=== PATIENT | male | born 1975 | race Caucasian/White ===

== ENCOUNTER 2021-08-13 06:47 | Inpatient (IN) | payer OTHER ==
[2021-08-13] MEDS ORDERED: diazePAM CARPU-JECT 10 MG/2 ML DISP.SYRIN IVPUSH ONE ×2 (07:42→09:57)
[2021-08-13] MEDS ORDERED: SODIUM CHLORIDE 0.9% 500 ML INFUS.BAG IV ONE (07:44)
[2021-08-13] MEDS ORDERED: FOLIC ACID INJECTION - 1 MG, THIAMINE HCL 100 MG, MULTIVIT INJECTION ADULT 10 ML in SOD... IVPB ONE (07:50)
[2021-08-13] MEDS ORDERED: diazePAM CARPU-JECT 10 MG/2 ML DISP.SYRIN ONE ×2 (08:51→10:02)
[2021-08-13 09:37] LABS: BASO % 0.6 % (0-2.0); EOS % 0.3 % (0-4.5); HEMOGLOBIN 15.1 GM/dL (11.7-16.9); LYMPH % 12.3 % (8-40); MCH 31.1 pg (25.7-33.7); MCHC 34.2 g/dl (32.0-35.9); MEAN PLT VOLUME 7.4 fl (7.5-11.1); MONO % 13.6 % (3.8-10.2); NEUT % 73.2 % (42.8-82.8); PLATELET COUNT 98 10^3/uL (134-434); RBC 4.84 M/mm3 (4.00-5.60); RDW 15.4 % (11.9-15.9); WHITE BLOOD COUNT 4.8 K/mm3 (4.0-10.0)
[2021-08-13 09:55] LABS: CHLORIDE 99 mmol/L (98-107); SODIUM 135 mmol/L (136-145)
[2021-08-13 09:57] LABS: CALCIUM 9.1 mg/dL (8.5-10.1)
[2021-08-13 09:58] LABS: ALBUMIN 4.5 g/dl (3.4-5.0); ANION GAP 10 MMOL/L (8-16); BLOOD UREA NITROGEN 6.9 mg/dL (7-18); CO2 26 mmol/L (21-32); GLUCOSE,RANDOM 98 mg/dL (74-106); MAGNESIUM 2.3 mg/dL (1.8-2.4)
[2021-08-13 10:01] LABS: CREATININE 0.5 mg/dL (0.55-1.3); PHOSPHOROUS 3.3 mg/dL (2.5-4.9); SGOT/AST 116 U/L (15-37); SGPT/ALT 120 U/L (13-61)
[2021-08-13 10:03] LABS: BILIRUBIN,TOTAL 1.2 mg/dL (0.2-1); TOT PROT 7.6 g/dl (6.4-8.2)
[2021-08-13 10:04] LABS: ALK PHOS 91 U/L (45-117)
[2021-08-13] MEDS ORDERED: LORazepam 2 MG TABLET PO SCH (11:00)
[2021-08-13] MEDS ORDERED: LORazepam 1 MG TABLET PO PRN (11:14)
[2021-08-13] MEDS ORDERED: LORazepam 1 MG TABLET PO SCH (11:27)
[2021-08-13] MEDS: LORazepam 1 MG TABLET PO SCH ×3 (11:35→22:14)
[2021-08-13] MEDS ORDERED: LORazepam 1 MG TABLET ONE (11:35)
[2021-08-13 12:00] LABS: COCAINE, UR NEGATIVE (NEGATIVE); METHADONE, UR NEGATIVE (NEGATIVE); URINE AMPHETAMINES NEGATIVE (NEGATIVE); URINE BARBITURATES NEGATIVE (NEGATIVE)
[2021-08-13 12:01] LABS: OPIATES, URI NEGATIVE (NEGATIVE); PHENCYCLIDINE,URINE NEGATIVE (NEGATIVE)
[2021-08-13 12:03] LABS: URINE BENZODIAZEPINES NEGATIVE (NEGATIVE)
[2021-08-13 12:13] LABS: EPI CELLS 1 /uL (0-25.1); HYALINE CASTS 1 /uL (0-3.1); PH,URINE 6.5 (5.0-8.0); URINE APPEARANCE CLEAR; URINE BACTERIA 17 /uL (0-1359); URINE BILIRUBIN NEGATIVE (NEGATIVE); URINE COLOR DK YELLOW; URINE GLUCOSE (UA) NEGATIVE (NEGATIVE); URINE KETONE 3+ (NEGATIVE); URINE LEUK ESTERASE NEGATIVE (NEGATIVE); URINE NITRITE NEGATIVE (NEGATIVE); URINE PROTEIN 1+ (NEGATIVE); URINE RBC 4 /uL (0-23.9); URINE WBC 1 /uL (0-25.8)
[2021-08-13 16:04] VITALS: BMI 21.7
[2021-08-13 23:35] VITALS: BP 120/71; PULSE 87; TEMP 98.3
[2021-08-14] MEDS ORDERED: MELATONIN 5 MG TABLETS PO ONE (01:12)
[2021-08-14] MEDS ORDERED: LORazepam 0.5 MG TABLET PO ONE (01:24)
[2021-08-14] MEDS: LORazepam 1 MG TABLET PO SCH (04:02)
[2021-08-14] MEDS ORDERED: THIAMINE HCL 100 MG TABLET (FP) PO SCH (10:00)
[2021-08-14] MEDS ORDERED: FOLIC ACID 1 MG TABLET (FP) PO SCH (10:00)
[2021-08-15] MEDS ORDERED: LORazepam 1 MG TABLET PO SCH (05:00)
[2021-08-16] MEDS ORDERED: LORazepam 0.5 MG TABLET PO PRN
[2021-08-16] MEDS ORDERED: LORazepam 0.5 MG TABLET PO SCH (05:00)
[2021-08-17] MEDS ORDERED: LORazepam 0.5 MG TABLET PO ONE (05:00)
== END 2021-08-14 10:33 | disposition left against medical advice (07) | DRG 770 ==
LOC: JER 06:47 → JERBED 10:46 → J5S 14:17
PROVIDERS: ADMIT Internal Medicine
DX: F10.231 Alcohol dependence with withdrawal delirium (principal); D69.6 Thrombocytopenia, unspecified; F10.232 Alcohol dependence with withdrawal with perceptual disturbance; R74.01 Elevation of levels of liver transaminase levels
CPT/HCPCS: 36415; 70450-TC; 76705-TC; 80053; 80307; 81003; 82140; 82746; 83735; 84100; 84443; 85025; 86704; 86705; 86803; 87340; 87517; 93005; 93010; 99291; C9803-CS; U0003; U0005

== ENCOUNTER 2021-10-12 09:15 | Emergency (ER) | payer OTHER ==
[2021-10-12 09:27] VITALS: BP 124/78; PULSE 74; RESP 18; TEMP 98.2; BMI 22.4
[2021-10-12] MEDS ORDERED: LACTULOSE 20 GM/30 ML UDC (FOR ORAL USE ONLY) PO ONE (10:35)
[2021-10-12] MEDS ORDERED: POLYETHYLENE GLYCOL 3350 119 GM BTL PO ONE (10:35)
[2021-10-12] MEDS ORDERED: LACTULOSE 20 GM/30 ML UDC (FOR ORAL USE ONLY) ONE (10:40)
[2021-10-12] MEDS ORDERED: POLYETHYLENE GLYCOL (HEALTHYLAX) 3350 17 GM PACKET ONE (10:40)
== END 2021-10-12 10:45 | disposition home or self-care (01) ==
LOC: JERFT 09:15
DX: K59.00 Constipation, unspecified (principal); R10.825 Periumbilic rebound abdominal tenderness
CPT/HCPCS: 74019-TC-FY; 99284-25

== ENCOUNTER 2022-01-04 22:31 | Emergency (ER) | payer OTHER ==
[2022-01-04 23:00] VITALS: TEMP 98.4; BMI 23.3
[2022-01-04] MEDS ORDERED: chlordiazePOXIDE HCL 25 MG CAPSULE PO ONE (23:45)
[2022-01-05] MEDS ORDERED: chlordiazePOXIDE HCL 25 MG CAPSULE ONE (00:11)
[2022-01-05 00:23] LABS: BASO % 0.8 % (0-2.0); HEMATOCRIT 42.2 % (35.4-49); HEMOGLOBIN 14.3 GM/dL (11.7-16.9); LYMPH % 19.4 % (8-40); MCH 30.4 pg (25.7-33.7); MEAN CELL VOLUME 89.6 fl (80-96); MEAN PLT VOLUME 6.8 fl (7.5-11.1); MONO % 12.7 % (3.8-10.2); NEUT % 66.1 % (42.8-82.8); PLATELET COUNT 205 10^3/uL (134-434); RBC 4.71 M/mm3 (4.00-5.60); RDW 13.8 % (11.9-15.9); WHITE BLOOD COUNT 6.1 K/mm3 (4.0-10.0)
[2022-01-05 00:42] LABS: CALCIUM 8.4 mg/dL (8.5-10.1)
[2022-01-05 00:43] LABS: BLOOD UREA NITROGEN 8.5 mg/dL (7-18)
[2022-01-05 00:45] LABS: CREATININE 0.8 mg/dL (0.55-1.3)
[2022-01-05 00:47] LABS: BILIRUBIN,TOTAL 0.5 mg/dL (0.2-1); TOT PROT 7.2 g/dl (6.4-8.2)
[2022-01-05 07:26] VITALS: BP 108/57; PULSE 89; RESP 16
== END 2022-01-05 07:50 | disposition home or self-care (01) ==
LOC: JER 22:31
DX: F10.20 Alcohol dependence, uncomplicated (principal)
CPT/HCPCS: 36415; 80053; 80307; 85025; 93005; 93010; 99284-25

== ENCOUNTER 2024-03-21 21:39 | Emergency (ER) | payer OTHER ==
[2024-03-21 21:48] VITALS: BP 132/82; PULSE 77; RESP 16; TEMP 100; BMI 22.6
[2024-03-21] MEDS ORDERED: chlordiazePOXIDE HCL 25 MG CAPSULE ONE (23:00)
[2024-03-21] MEDS: chlordiazePOXIDE HCL 25 MG CAPSULE PO ONE (23:20)
== END 2024-03-21 23:21 | disposition home or self-care (01) ==
LOC: JER 21:39 → JERFT 21:39 → JER 23:21
DX: G47.00 Insomnia, unspecified (principal); F10.139 Alcohol abuse with withdrawal, unspecified; Z20.822 Contact with and (suspected) exposure to COVID-19
CPT/HCPCS: 0241U-QW; 99283-25

== ENCOUNTER 2024-07-03 11:24 | Emergency (ER) | payer OTHER ==
[2024-07-03 11:32] VITALS: BP 128/83; PULSE 70; RESP 18; TEMP 97.3; BMI 23.6
[2024-07-03] MEDS: THIAMINE HCL 200 MG/2 ML VIAL IVPB ONE (14:00)
[2024-07-03] MEDS: SODIUM CHLORIDE 0.9% 500 ML INFUS.BAG IV ONE (14:00)
[2024-07-03] MEDS: chlordiazePOXIDE HCL 25 MG CAPSULE PO ONE (14:00)
[2024-07-03] MEDS: diazePAM CARPU-JECT 10 MG/2 ML DISP.SYRIN IVPUSH ONE (14:19)
[2024-07-03] MEDS ORDERED: THIAMINE HCL 200 MG/2 ML VIAL ONE (14:22)
[2024-07-03] MEDS ORDERED: chlordiazePOXIDE HCL 25 MG CAPSULE ONE (14:22)
[2024-07-03 14:30] LABS: ABSOLUTE IMMATURE GRANULOCYTES 0.02 x10^3/uL (0.0-0.031); BASOPHILS # 0.07 x10^3/uL (0.01-0.08); EOSINOPHIL % 1.3 % (0.8-7.0); EOSINOPHILS # 0.06 x10^3/uL (0.04-0.54); HEMATOCRIT 43.8 % (40.1-51.0); MCHC 34.2 g/dl (32.3-36.5); MEAN CELL VOLUME 93.8 fl (79.0-92.2); MEAN PLT VOLUME 10.4 fl (9.4-12.4); MONOCYTE # 0.75 x10^3/uL (0.30-0.82); MONOCYTE % 16.6 % (5.3-12.2); PLATELET COUNT 106 x10^3/uL (163-337); RDW 13.3 % (12.1-15.9)
[2024-07-03 14:36] LABS: INR 1.03 (0.83-1.09); PROTHROMBIN TIME (PATIENT) 11.3 SEC (9.7-13.0)
[2024-07-03 14:38] LABS: ACTIVATED PTT 27.2 SECONDS (25.2-36.5)
[2024-07-03 14:50] LABS: POTASSIUM 3.7 mmol/L (3.5-5.1)
[2024-07-03 14:52] LABS: ALBUMIN 4.4 g/dl (3.4-5.0)
[2024-07-03 14:53] LABS: BLOOD UREA NITROGEN 7.4 mg/dL (7-18); CALCIUM 9.4 mg/dL (8.5-10.1); MAGNESIUM 2.2 mg/dL (1.8-2.4)
[2024-07-03 14:56] LABS: BILIRUBIN,DIRECT 0.5 mg/dL (0.0-0.2); CREATININE 0.6 mg/dL (0.55-1.3)
[2024-07-03 14:58] LABS: BILIRUBIN,TOTAL 1.4 mg/dL (0.2-1); TOT PROT 7.6 g/dl (6.4-8.2)
[2024-07-03 15:45] LABS: HCV DIAGNOSTIC IN-HOUSE W/RFLX NON-REACTIVE (NONREACTIVE)
[2024-07-03 15:46] LABS: HIV INTERPRETATION NEGATIVE (NEGATIVE)
== END 2024-07-03 15:28 | disposition home or self-care (01) ==
LOC: JER 11:24
PROC: 3E033GC Introduction of Other Therapeutic Substance into Peripheral Vein, Percutaneous Approach (ICD-10-PCS; principal; 2024-07-03)
DX: R25.1 Tremor, unspecified (principal); F10.939 Alcohol use, unspecified with withdrawal, unspecified
CPT/HCPCS: 36415; 80053; 82140; 82248; 83735; 85025; 85610; 85730; 86803; 87389; 99284-25